=== PATIENT | female | born 1990 | race Caucasian/White ===

== ENCOUNTER 2017-08-12 17:39 | Inpatient (IN) ==
[2017-08-12 18:42] LABS: Basophils # 0.1 K/mcL (0.0-0.2); Basophils % 0.4 %; Eosinophils # 0.1 K/mcL (0.0-0.6); Eosinophils % 0.7 %; Hematocrit 40.8 % (35.3-44.9); Hemoglobin 13.5 g/dL (11.5-15.4); Immature Granulocytes % 0.3 % (0-4); Lymphocytes # 2.7 K/mcL (0.6-4.6); Lymphocytes % 22.9 %; Mean Corpuscular HGB Conc 33.1 g/dL (31.6-35.5); Mean Corpuscular Hemoglobin 27.6 pg (28.0-33.3); Mean Corpuscular Volume 83.4 fL (83.0-100.0); Mean Platelet Volume 10.2 fL (9.4-12.4); Monocytes # 0.8 K/mcL (0.0-1.3); Monocytes % 6.9 %; Neutrophils # 8.1 K/mcL (1.6-8.9); Platelet Count 306 K/mcL (140-400); Red Blood Count 4.89 M/mcL (3.82-4.97); Red Cell Distribution Width 13.3 % (11.5-14.5); Segmented Neutrophils % 68.8 %
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
[2017-08-12 18:46] LABS: Bilirubin,Urine Moderate (Negative); Blood,Urine Negative (Negative); Color,Urine Dark Yellow (Yellow); Glucose,Urine (UA) Normal (Normal); Ketones,Urine Trace mg/dL (Negative); Leukocyte Esterase,Urine Small (Negative); Nitrite,Urine Negative (Negative); Protein,Urine 30 mg/dL (Neg-Trace); Specific Gravity,Urine 1.026 (1.010-1.025); Urobilinogen,Urine Normal (Normal)
[2017-08-12 18:47] LABS: Clarity,Urine Hazy (Clear)
[2017-08-12 18:51] LABS: Bacteria,Urine Few per hpf (None-Few); RBC,Urine 0-3 per hpf (0-3); Squamous Epithelial Cell,Urine Few per lpf (None-Few)
[2017-08-12 18:56] LABS: Amphetamine Screen,Urine Positive ng/mL (Cutoff=1000); Barbiturate Screen,Urine Negative ng/mL (Cutoff=200); Benzodiazepines Screen,Urine Negative ng/mL (Cutoff=200); Cannabinoid Screen,Urine Negative ng/mL (Cutoff = 50); Cocaine Screen,Urine Negative ng/mL (Cutoff= 300); Opiate Screen,Urine Negative ng/mL (Cutoff=300); Phencyclidine Screen,Urine Negative ng/mL (Cutoff=25)
[2017-08-12 18:58] LABS: Acetaminophen < 10 mcg/mL (10-20); Ethanol < 10 mg/dL (Less than 10); Salicylate < 2.5 mg/dL (15.0-30.0)
[2017-08-12 19:11] LABS: BUN/Creatinine Ratio 10 (6-26); Blood Urea Nitrogen 11 mg/dL (6-20); Calcium 9.3 mg/dL (8.6-10.3); Carbon Dioxide 23 mEq/L (23-29); Chloride 103 mEq/L (98-107); Glucose 112 mg/dL (70-105); Osmolality,Calculated 286 (280-300); Potassium 3.5 mEq/L (3.5-5.1); Sodium 138 mEq/L (136-145); eGFR For African Americans > 60 (> 60); eGFR For Non-African Americans 58 (> 60)
[2017-08-12] MEDS ORDERED: MOM Conc 10 ML UD.LIQ PO PRN (21:56)
[2017-08-12] MEDS ORDERED: *HR* LORazepam 1 MG TABLET PO PRN (21:56)
[2017-08-12] MEDS ORDERED: *HR* LORazepam 2 MG/ML VIAL IM PRN (21:56)
[2017-08-12] MEDS ORDERED: Haloperidol Lactate 5 MG/ML VIAL IM PRN (21:56)
[2017-08-12] MEDS ORDERED: hydrOXYzine pamoate 25 MG CAPSULE PO PRN (21:56)
[2017-08-12] MEDS ORDERED: Mag Hydrox/Al Hydrox/Simeth 30 ML UDC PO PRN (21:56)
[2017-08-12] MEDS: traZODone 50 MG TABLET PO PRN (23:51)
[2017-08-13] MEDS ORDERED: Ziprasidone injection 20 MG/ML VIAL IM ONE (00:14)
[2017-08-13] MEDS: Acetaminophen 325 MG TABLET PO PRN (00:43)
--- NOTE | 2017-08-13 10:50 | Psychiatry History & Physical ---
Date of Encounter: 08/13/17 Time of Encounter: 10:42 History of Present Illness Patient Stated Chief Complaint: suicidal ideation Medicare Admission Attestation: For traditional Medicare patients the provided hospital inpatient services are reasonable and necessary and in the case of services not specified as inpatient -only under 42 CFR 419.22 (n), that they are appropriately provided as inpatient services in accordance 42 CFR 412.3. For Critical Access Hospital the patient may reasonably be expected to be discharged or transferred to a hospital within 96 hours after admission to the Critical Access Hospital. Admitted From: Home Plans for Post Hospital Care: Home History of Present Illness: Ms. Martin is a 26 year old female who was admitted secondary to SI and HI. Today she is very drowsy. Kept nodding off during interview. Slurring words. Difficult to understand. Had to terminate interview as client too sedated to participate meaningfully. Client did manage to say she is not currently linked with a psychiatrist and is not currently on any medications. Records from previous 1A admission in 2015 state that client was admitted for SI and HI at that time as well. She was linked with [facility] and discharged on Lexapro and prn Trazodone. Tox screen positive for amphetamines. Client admits today to doing ICE. Suspect a lot of her current presentation is substance related. Will not order any meds today and give her time to wake up. Will reevaluate when more alert and she can provide more information. Past Med Surg Social Fam HX - Past Medical History Medical history: asthma, kidney stones, migraine, seizures - Past Psychiatric History Psychiatric history: Reports: depression, previous psychiatric hospitalization Family psychiatric history: Unknown Family History of Suicide: Unknown - Past Surgical History Surgical History: no surgical history - Social History Smoking Status: Current every day smoker Smokeless Tobacco Status: No Alcohol use: none Drug use: opiates, prescription drug abuse - Family History Mother Living Status: Still Living Hx Family Cancer: Yes (uterine) Medications & Allergies Topiramate [Topamax] 100 mg PO BID 08/08/17 [History] Sulfamethoxazole/Trimeth DS [Bactrim DS] 1 each PO BID #14 tablet 08/12/17 [Rx] 3 Allergy/AdvReac Type Severity Reaction Status Date / Time coconut oil Allergy Hives Verified 08/12/17 17:47 Diclofenac [From Voltaren] Allergy Hives Verified 08/12/17 17:47 Penicillins [PCN] Allergy Hives Verified 08/12/17 17:47 tramadol [From Ultram] Allergy Hives Verified 08/12/17 17:47 Review of Systems Constitutional: Denies: fever, chills, weakness, weight change Eyes: Denies: eye pain, vision change Ears, Nose, Throat: Denies: ear pain, throat pain, dental pain, hearing loss, congestion Cardiovascular: Denies: chest pain, palpitations, dyspnea on exertion Respiratory: Denies: cough, dyspnea, wheezes Gastrointestinal: Denies: abdominal pain, nausea, vomiting, diarrhea, constipation Genitourinary female: Denies: urgency, dysuria, frequency, abnormal menses, dyspareunia Musculoskeletal: Denies: joint swelling, joint pain Integumentary: Denies: rash, lesions, pruritus Neurological: Denies: headache, weakness, numbness, memory loss Endocrine: Denies: fatigue, heat or cold intolerance Hematologic/Lymphatic: Denies: easy bruising, lymphadenopathy Allergic/Immunologic: Denies: urticaria, itchy eyes Exam - HEENT Head exam IM: Present: atraumatic Eye exam IM: Present: EOMI ENT exam IM: Present: normal exam - Neurological Neurological exam: Present: CN II-XII intact - Respiratory Respiratory exam IM: Present: CTAB - GI/Abdominal GI/Abdominal exam IM: Present: normal bowel sounds, soft. Absent: tenderness - Extremities Extremities exam IM: Present: full ROM - Skin Skin exam IM: Present: dry, warm - Constitutional Vitals: Temp Pulse Resp BP Pulse Ox 97.9 F 109 18 167/116 100 08/12/17 22:30 08/12/17 22:30 08/12/17 22:30 08/12/17 22:30 08/12/17 21:46 General appearance: obese - Musculoskeletal Gait: unsteady Station: relaxed Strength & Tone: normal for patient - Psychiatric Patient Orientation: Yes Person, Yes Time, Yes Place Level of alertness: Sedated Behavior: calm Psychomotor activity: Slowed Eye Contact: Minimal Contact Mood Description: Depressed Affect description: congruent with mood Speech Volume: Soft/Quiet Speech pattern: slurred Language & Vocabulary: consistent with education Thought Process: Linear Thought Content: Yes Suicidal ideation, Yes Homicidal ideation, No Overt delusions Perceptual Disturbances: No Auditory hallucinations, No Visual hallucinations Attention Span Ability: Unable to Focus, Unable to Sustain Attention Memory Description: Grossly Intact Patient Reliability: Questionable Historian Fund of knowledge: Yes abstraction ability, Yes average, Yes aware of current events Intelligence Estimate: Below Average Judgment: Limited Insight: Partial Results - Labs Labs: Laboratory Last Values WBC 11.7 K/mcL (4.3-11.1) H 08/12/17 18:20 RBC 4.89 M/mcL (3.82-4.97) 08/12/17 18:20 Hgb 13.5 g/dL (11.5-15.4) 08/12/17 18:20 Hct 40.8 % (35.3-44.9) 08/12/17 18:20 MCV 83.4 fL (83.0-100.0) 08/12/17 18:20 MCH 27.6 pg (28.0-33.3) L 08/12/17 18:20 MCHC 33.1 g/dL (31.6-35.5) 08/12/17 18:20 RDW 13.3 % (11.5-14.5) 08/12/17 18:20 Plt Count 306 K/mcL (140-400) 08/12/17 18:20 MPV 10.2 fL (9.4-12.4) 08/12/17 18:20 Immature Gran % 0.3 % (0-4) 08/12/17 18:20 Seg Neutrophils % 68.8 % 08/12/17 18:20 Lymphocytes % 22.9 % 08/12/17 18:20 Monocytes % 6.9 % 08/12/17 18:20 Eosinophils % 0.7 % 08/12/17 18:20 Basophils % 0.4 % 08/12/17 18:20 Neutrophils # 8.1 K/mcL (1.6-8.9) 08/12/17 18:20 Lymphocytes # 2.7 K/mcL (0.6-4.6) 08/12/17 18:20 Monocytes # 0.8 K/mcL (0.0-1.3) 08/12/17 18:20 Eosinophils # 0.1 K/mcL (0.0-0.6) 08/12/17 18:20 Basophils # 0.1 K/mcL (0.0-0.2) 08/12/17 18:20 Sodium 138 mEq/L (136-145) 08/12/17 18:20 Potassium 3.5 mEq/L (3.5-5.1) 08/12/17 18:20 Chloride 103 mEq/L (98-107) 08/12/17 18:20 Carbon Dioxide 23 mEq/L (23-29) 08/12/17 18:20 BUN 11 mg/dL (6-20) 08/12/17 18:20 Creatinine 1.13 mg/dL (0.60-1.20) 08/12/17 18:20 Est GFR ( Amer) > 60 (> 60) 08/12/17 18:20 Est GFR (Non-Af Amer) 58 (> 60) L 08/12/17 18:20 BUN/Creatinine Ratio 10 (6-26) 08/12/17 18:20 Glucose 112 mg/dL (70-105) H 08/12/17 18:20 Calculated Osmolality 286 (280-300) 08/12/17 18:20 Calcium 9.3 mg/dL (8.6-10.3) 08/12/17 18:20 Urine Color Dark Yellow (Yellow) 08/12/17 18:20 Urine Clarity Hazy (Clear) A 08/12/17 18:20 Urine pH 6.0 pH Units (5.0-8.0) 08/12/17 18:20 Ur Specific [place] 1.026 (1.010-1.025) H 08/12/17 18:20 Urine Protein 30 mg/dL (Neg-Trace) H 08/12/17 18:20 Urine Glucose (UA) Normal mg/dL (Normal) 08/12/17 18:20 Urine Ketones Trace mg/dL (Negative) H 08/12/17 18:20 Urine Blood Negative (Negative) 08/12/17 18:20 Urine Nitrite Negative (Negative) 08/12/17 18:20 Urine Bilirubin Moderate (Negative) H 08/12/17 18:20 Urine Urobilinogen Normal mg/dL (Normal) 08/12/17 18:20 Ur Leukocyte Esterase Small (Negative) H 08/12/17 18:20 Urine Microscopic RBC 0-3 per hpf (0-3) 08/12/17 18:20 Urine Microscopic WBC 3-5 per hpf (0-3) H 07/06/18 18:20 Ur Squamous Epith Cells Few per lpf (None-Few) 08/12/17 18:20 Urine Bacteria Few per hpf (None-Few) 08/12/17 18:20 Salicylates < 2.5 mg/dL (15.0-30.0) L 08/12/17 18:20 Urine Opiates Screen Negative ng/mL (Tbnbhz=359) 08/12/17 18:20 Acetaminophen < 10 mcg/mL (10-20) L 08/12/17 18:20 Ur Barbiturates Screen Negative ng/mL (Hmrfen=206) 08/12/17 18:20 Ur Phencyclidine Scrn Negative ng/mL (Cutoff=25) 08/12/17 18:20 Ur Amphetamines Screen Positive ng/mL (Wpsyqm=8095) H 08/12/17 18:20 U Benzodiazepines Scrn Negative ng/mL (Prizng=092) 08/12/17 18:20 Urine Cocaine Screen Negative ng/mL (Cutoff= 300) 08/12/17 18:20 U Marijuana (THC) Screen Negative ng/mL (Cutoff = 50) 08/12/17 18:20 Ur Drug Screen Interp See Below 08/12/17 18:20 Ethyl Alcohol < 10 mg/dL (Less than 10) 08/12/17 18:20 Assessment and Plan (1) Drug-induced mood disorder Current visit: Yes Status: Acute Plan: Admit inpatient for safety and stabilization, Close observation, Suicide Precautions per unit protocol, Encourage participation in unit milieu, Group Therapy, Monitor sleep, Monitor appetite Risks, benefits, side effects, alternatives discussed w/pt: Yes Patient agreeable to treatment: Yes Plans for Post Hospital Care: Home Estimated Length of Stay (Days): 4 (2) Stimulant abuse Current visit: Yes Status: Acute Plan: Admit inpatient for safety and stabilization, Close observation, Suicide Precautions per unit protocol, Encourage participation in unit milieu, Group Therapy, Monitor sleep, Monitor appetite Risks, benefits, side effects, alternatives discussed w/pt: Yes Patient agreeable to treatment: Yes Plans for Post Hospital Care: Home Estimated Length of Stay (Days): 4
[2017-08-13] MEDS: Topiramate 100 MG TABLET PO SCH ×2 (11:59→21:22)
[2017-08-14] MEDS: Topiramate 100 MG TABLET PO SCH ×2 (08:41→21:09)
--- NOTE | 2017-08-14 11:38 | Psychiatry Progress Note ---
Date of Encounter: 08/14/17 Time of Encounter: 11:31 Subjective Interval history: Client is still drowsy but more able to communicate today. According to staff she slept all day and all night yesterday. Client is unclear on the events that transpired leading up to her admission. Believes she took a bunch of muscle relaxers in a suicide attempt but she is not 100% sure that this actually happened. Claims she and her have been fighting. Endorses worsening depression. 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 Client denies SI today but she is emotionally labile. Very dramatic. Borderline traits. Thoughts are circular and she repeats herself a lot. Currently prescribed Topamax for headaches and seizures. Vague about whether she will take mental health medications. Discussed Abilify and she seemed agreeable. Only thing she asked for was Klonopin. Suspect her presentation is mostly related to substance abuse and personality issues. Client states she wants to spend her time here writing poetry and coloring. Review of Systems Constitutional: Denies: fever, chills, weakness, weight change Eyes: Denies: eye pain, vision change Ears, Nose, Throat: Denies: ear pain, throat pain, dental pain, hearing loss, congestion Cardiovascular: Denies: chest pain, palpitations, dyspnea on exertion Respiratory: Denies: cough, dyspnea, wheezes Gastrointestinal: Denies: abdominal pain, nausea, vomiting, diarrhea, constipation Musculoskeletal: Denies: joint swelling, joint pain Neurological: Denies: headache, weakness, numbness, memory loss Results - Vital Signs Vital Signs: Temp Pulse Resp BP Pulse Ox 97.9 F 98 18 111/79 100 08/14/17 09:00 08/14/17 09:00 08/14/17 09:00 08/14/17 09:00 08/12/17 21:46 Assessment and Plan (1) Drug-induced mood disorder Current visit: Yes Status: Acute Plan: Continue hospitalization, Close observation, Suicide Precautions per unit protocol, Encourage participation in unit milieu, Group Therapy, Monitor sleep, Monitor appetite Risks, benefits, side effects, alternatives discussed w/pt: Yes Patient agreeable to treatment: Yes (2) Stimulant abuse Current visit: Yes Status: Acute Plan: Continue hospitalization, Close observation, Suicide Precautions per unit protocol, Encourage participation in unit milieu, Group Therapy, Monitor sleep, Monitor appetite Risks, benefits, side effects, alternatives discussed w/pt: Yes Patient agreeable to treatment: Yes Consult Discharge Plan - Plan Referrals: NONE,PCP [Primary Care Provider] - Psychiatry Exam - Constitutional Vitals: Temp Pulse Resp BP Pulse Ox 97.9 F 98 18 111/79 100 08/14/17 09:00 08/14/17 09:00 08/14/17 09:00 08/14/17 09:00 08/12/17 21:46 General appearance: obese - Musculoskeletal Gait: normal Station: relaxed Strength & Tone: normal for patient - Psychiatric Patient Orientation: Yes Person, Yes Time, Yes Place Level of alertness: Alert Behavior: calm, cooperative Psychomotor activity: Normal Eye Contact: Maintains Eye Contact Mood Description: Depressed Affect description: congruent with mood Speech Volume: Normal Speech pattern: normal rate, normal rhythm, normal tone, fluent, spontaneous Language & Vocabulary: consistent with education Thought Process: Circumstantial Thought Content: No Suicidal ideation, No Homicidal ideation, No Overt delusions Perceptual Disturbances: No Auditory hallucinations, No Visual hallucinations Attention Span Ability: Capable of Focused Attention Memory Description: Recent Impaired Patient Reliability: Questionable Historian Fund of knowledge: Yes below average Intelligence Estimate: Below Average Judgment: Limited Insight: Partial
[2017-08-14] MEDS ORDERED: risperiDONE 0.25 MG TABLET PO SCH (21:00)
[2017-08-14] MEDS ORDERED: ARIPiprazole 5 MG TABLET PO SCH (21:00)
[2017-08-14] MEDS: traZODone 50 MG TABLET PO PRN (21:09)
[2017-08-15] MEDS: Acetaminophen 325 MG TABLET PO PRN (09:09)
[2017-08-15] MEDS: Topiramate 100 MG TABLET PO SCH (09:09)
[2017-08-15 09:15] VITALS: BP 107/67
[2017-08-15] MEDS ORDERED: Ibuprofen 800 MG TABLET PO ONE (11:41)
--- NOTE | 2017-08-15 11:52 | Discharge Summary ---
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 Status: Acute (2) Other stimulant dependence with stimulant-induced mood disorder Status: Acute (3) Epilepsy without status epilepticus, not intractable Status: Chronic Qualifiers: Epilepsy type: unspecified Qualified Code(s): G40.909 - Epilepsy, unspecified, not intractable, without status epilepticus (4) Migraine without status migrainosus, not intractable Status: Acute Qualifiers: Migraine type: without aura Qualified Code(s): G43.009 - Migraine without aura, not intractable, without status migrainosus (5) Suicidal ideation Status: Resolved Medications - Discharge Medications Prescriptions: ARIPiprazole [Abilify] 5 mg PO HS 30 Days #30 tablet Sulfamethoxazole/Trimeth DS [Bactrim Ds] 1 each PO BID 7 Days #14 tablet Topiramate [Topamax] 100 mg PO BID 30 Days #60 tablet ARIPiprazole [Abilify] 5 mg PO HS 30 Days #30 tablet 08/15/17 [Rx] Sulfamethoxazole/Trimeth DS [Bactrim Ds] 1 each PO BID 7 Days #14 tablet [Rx] Topiramate [Topamax] 100 mg PO BID 30 Days #60 tablet 08/15/17 [Rx] 3 Allergy/AdvReac Type Severity Reaction Status Date / Time coconut oil Allergy Hives Verified 08/12/17 17:47 Diclofenac [From Voltaren] Allergy Hives Verified 08/12/17 17:47 Penicillins [PCN] Allergy Hives Verified 08/12/17 17:47 tramadol [From Ultram] Allergy Hives Verified 08/12/17 17:47 Provider Date of admission: 08/12/17 21:44 Primary care physician: PCP NONE Consults: 08/14/17 15:35 Consult to Pastoral Services [CONS] Routine Comment: Discharging clinician: Prudencio Kaur Psychiatry Exam - Constitutional Vitals: Temp Pulse Resp BP Pulse Ox 97.2 F L 90 18 107/67 100 08/15/17 09:00 08/15/17 09:00 08/15/17 09:00 08/15/17 09:00 08/12/17 21:46 General appearance: age & developmentally appropriate, well-groomed, well- nourished - Musculoskeletal Gait: normal Station: relaxed Strength & Tone: normal for patient - Psychiatric Patient Orientation: Yes Person, Yes Time, Yes Place Level of alertness: Sedated Behavior: calm, cooperative Eye Contact: Maintains Eye Contact Mood Description: Euthymic/stable Affect description: congruent with mood, full range Speech Volume: Normal Speech pattern: normal rate, normal rhythm, normal tone, fluent, spontaneous Language & Vocabulary: consistent with education Thought Process: Linear, Goal Oriented Thought Content: No Suicidal ideation, No Homicidal ideation, No Overt delusions Perceptual Disturbances: No Auditory hallucinations, No Visual hallucinations Attention Span Ability: Capable of Focused Attention Memory Description: Grossly Intact Patient Reliability: Reliable Historian Fund of knowledge: Yes abstraction ability, Yes aware of current events Intelligence Estimate: Average Judgment: Fair Insight: Partial (patient reported migraine at time of interview) Hospital Course Hospital course: Ms. Martin is a 26 year old female Chief complaints was of suicidal ideation. History of present illness. The patient had been admitted after reporting suicidal ideation sitting in her car with a rope around her neck. An effort to kill herself. After the patient was admitted to the [facility]. She did not display any suicidal or homicidal ideation. The patient was continued on Abilify and topiramate. Topiramate is used for seizures and for migraine headaches. The patient's use of methamphetamine was of concern area was felt that this contributed significantly to her mood and her paranoia. The difficulties between her and her may have induced some of the thinking. Nonetheless on the day of discharge the patient was seen and told that her would be interested in having her return home. The patient denied significant paranoia or ideas about him. She reported no suicidal ideation. The patient elected to return home with outpatient follow-up. The patient did not have evidence of significant mood disturbance or psychosis. However the patient did have migraine headache and I discussed treatment options including ibuprofen and Naprosyn she said that she could take these medicines. The chart shows an allergy to diclofenac but the patient denied allergies to the medicines offered. Regarding the patient's diagnosis and diagnosis of mood disorder due to a general medical condition major depressive type was given. The primary physiologic conditions are a seizure disorder which she has been under some treatment for an for migraine headaches works were witnessed on the unit. These can contribute significantly to the presentation of major depression including suicidal ideation. Furthermore patient's use of methamphetamine may be contributing significantly. The nature of the seizures could not be determined as some of the workup had occurred outside the health system. The patient did have a head CT and MRI in the past or read as normal. - Time Spent with Patient Total time spent providing and/or coordinating discharge services: Less than 30 minutes Assessment and Plan - Patient/Caregiver Discharge Instructions Activity: resume usual activities as tolerated Diet: regular diet - Follow up Plan Follow up with: Seng Rehman [Outside] - 08/18/17 2:00 pm (The above appointment is with Anastasia Ndiaye for mental health and substance abuse counseling.Please bring photo ID and proof of pending insurance.) [facility] Cheryl [Outside] - 08/25/17 11:00 am (The above appointment is with Sade Gray CNP a psychiatric provider.) Functional capacity at discharge: independent ambulation Overall status at discharge: Stable Disposition: Home, Self-Care Quality - Multiple Antipsychotics Patient discharged on 2 or more antipsychotic medications: No Procedures - Procedures Procedures: Medication Management, Crisis Stabilization, Supportive Therapy, Group Therapy, Psychoeducational Therapy
== END 2017-08-15 13:35 | disposition home or self-care (01) | DRG 884 ==
LOC: EMEROO 17:39 → 1ANU 21:44
PROVIDERS: ADMIT Psychiatry & Neurology Forensic Psychiatry; ATTEND Psychiatry & Neurology Forensic Psychiatry

== ENCOUNTER 2018-09-08 02:55 | Observation (INO) ==
[2018-09-08] MEDS ORDERED: *HR* LORazepam 2 MG/ML VIAL IVP ONE (03:12)
--- NOTE | 2018-09-08 03:27 | Emergency Department Note ---
Disposition Clinical Impression: Tachycardia, Elevated troponin Chest pain Qualifiers: Chest pain type: unspecified Qualified Code(s): R07.9 - Chest pain, unspecified Hypertension Qualifiers: Hypertension type: unspecified Qualified Code(s): I10 - Essential (primary) hypertension Disposition: Admitted As Inpatient Condition: Fair Time of Disposition: 06:29 Chest Pain HPI - General Chief Complaint: ED Chest Pain Stated Complaint: vomiting/CP Time Seen by Provider: 09/08/18 03:08 Source: patient, family Mode of arrival: ambulatory Limitations: no limitations Vital Signs Reviewed: Yes Nursing Notes Reviewed: Yes - History of Present Illness HPI Narrative: 27-year-old female past medical history of anxiety/depression, fibromyalgia, presenting for a 3 hour history of sudden onset headache, chest pain, nausea and vomiting. Upon my initial evaluation the patient is actively shaking, is awake, alert, oriented, either will not or cannot verbally respond to my questioning and instead is pointing to parts of her body when asked about pain and other review of systems questioning. Patient's boyfriend in the room with her answers questions for the patient and appears to be very actively involved in her health care. Boyfriend states the patient has been having multiple seizures since around midnight. It is noted that during the patient's shaking that she is able to respond to questioning there are no lateralizing signs, she appears to be in acute emotional distress, her skin is normal color she is nondiaphoretic, noncy anotic she is not pale. Pt complaint: chest pain Onset (ago): hour(s) Pain Location: substernal Severity scale (1-10): 10 Associated symptoms: Reports: nausea, vomiting, dyspnea Treatments prior to arrival chest pain: none - Related Data Home Medications Medication Instructions Recorded Confirmed hydrOXYzine HCl [Hydroxyzine HCl] 25 mg PO TID 11/16/17 04/02/18 Promethazine [Phenergan] 25 mg PO Q6HR PRN 04/02/18 04/02/18 Ketorolac [Toradol] 06/27/18 Metoprolol [Lopressor] 06/27/18 Previous Rx's Medication Instructions Recorded Topiramate [Topamax] 100 mg PO BID 30 Days #60 tablet 08/15/17 SUMAtriptan Succinate [Imitrex] 6 mg SQ Q1H PRN #4 cartridge 11/16/17 Albuterol Sulfate [Ventolin Hfa] 18 gm IH Q4H PRN #1 [id number] 02/21/18 Omeprazole 20 mg PO DAILY #30 tab.[email or web address]. 02/28/18 Clindamycin [Cleocin] 150 mg PO Q6HR #40 capsule 05/28/18 DiphenhydraMINE [Benadryl] 25 - 50 mg PO Q6HR #30 capsule 07/30/18 Famotidine [Pepcid] 20 mg PO BID #30 tablet 07/30/18 predniSONE [PredniSONE] 40 mg PO DAILY #10 tablet 07/30/18 Allergies Allergy/AdvReac Type Severity Reaction Status Date / Time Amoxicillin Allergy Hives Verified 06/27/18 02:00 coconut oil Allergy Hives Verified 04/02/18 05:11 Diclofenac [From Voltaren] Allergy Hives Verified 04/02/18 05:11 Penicillins [PCN] Allergy Hives Verified 04/02/18 05:11 tramadol [From Ultram] Allergy Hives Verified 04/02/18 05:11 Review of Systems: As Per HPI Limitations: ROS unobtainable due to patients medical condition Chest Pain PMH - Past Medical History Medical history: Reports: asthma, hypertension, kidney stones, migraine, seizures Surgical history: Reports: no surgical history Psychiatric history: Reports: anxiety, ADHD, bipolar, depression, panic disorder, PTSD, prior suicide attempt, schizophrenia, previous psychiatric hospitalization [employer] history: Reports: polycystic ovary syndrome - Social History Smoking Status: Never smoker Alcohol use: Reports: none Drug use: Reports: none Physical Exam Constitutional: Patient is actively shaking creating a somewhat limited physical exam Neuro: GCS 15, no overt focal neurological deficits Head: Atraumatic, normocephalic Eyes: Pupils equal, round and reactive to light, no scleral icterus, no conjunctival injection Neck: Trachea midline without deviation. Anterior neck is supple without swelling. *Chest: Symmetric chest wall rise *Heart: Cardiac rate is tachycardic, rhythm is regular with S1 and S2 , no S3 or S4 appreciated, no murmurs, gallops, rubs, or clicks. *Lungs: Lungs are clear to auscultation bilaterally, without accessory muscle use or prolonged expiratory phase. No wheezes, rhonchi or stridor appreciated. Abdomen: Abdomen is flat, soft to palpation, normal bowel sounds. No abdominal bruit auscultated. Non-distended, non-rigid, no organomegaly, no ascites appreciated. No pulsatile mass, no tenderness or guarding to palpation in all four quadrants, no rebound Extremities: Normal capillary refill without evidence of pedal edema, joint swelling or erythema. Pulses/motor intact in all 4 extremities. Psychiatric exam: Patient appears extremely anxious. Integumentary: warm, dry, intact, normal color. No rash, cyanosis, diaphoresis, erythema, or pallor - General Limitations: no limitations General appearance: alert, anxious Course Course Narrative: CBC, BMP, troponin, TSH, urinalysis, urine , EKG/old EKG, chest x-ray, 324 mg aspirin, nitroglycerin, 2 mg Ativan for management of patient's symptoms. - Reevaluation(s) Reevaluation #1: Upon reevaluation patient is now conversational without dyspnea she remains tachycardic and tachypneic as well as hypertensive, patient states that she has these episodes whenever her back plain flares up and that she normally has episodes of seizures along with the pain. Patient states that she is on Imitrex injections for migraine headaches and takes Topamax for seizures. Time: 04:21 Reevaluation #2: RE-evaluation patient states she is having worsening head and back pain is causing her to become more anxious and tremor again. As the patient has already received 2 mg of Ativan and will be receiving 10 mg metoprolol I will cautiously administer 50 g of fentanyl and reassessed frequently to be sure that the patient does not become hypotensive or develop any further complications. The patient verbalizes her understanding and agreement with this plan. Time: 04:31 Reevaluation #3: After 5 mg of Lopressor patient's heart rate down into the 110 range. We will administer second 5 mg aliquots at this time. Time: 04:35 Additional Reevaluation(s): 0 4:35 AM patient noted to have elevated troponin of 0.05. We will repeat this lab 3 hours after initial draw putting redraw time at 6:30 AM. Patient will be admitted to hospitalist medicine service if continued elevation at that time. No ischemic changes are noted to the EKG. 0 5:15 AM. Patient continues to be tachycardic, tachypneic, hypertensive despite 10 mg metoprolol. We will start a labetalol drip at this time and cont inue to frequently reassessed. 0 6:54 AM. Repeat troponin of 0.05 holding steady patient will not require heparinization at this time. Vital Signs Temperature 99.1 F 09/08/18 03:04 Pulse Rate 156 09/08/18 03:04 Respiratory Rate 28 09/08/18 03:04 Blood Pressure 152/119 09/08/18 03:04 O2 Sat by Pulse Oximetry 100 09/08/18 03:04 Temperature 99.1 F 09/08/18 03:04 Pulse Rate 129 09/08/18 06:06 Respiratory Rate 18 09/08/18 06:06 Blood Pressure 157/96 09/08/18 06:10 O2 Sat by Pulse Oximetry 99 09/08/18 06:06 Oxygen Delivery Oxygen Delivery Room Air Chest Pain - MDM Narrative Medical decision making narrative: Patient heart score is 2 Patient started on labetalol drip due to tachycardia, hypertension is currently well-controlled at 1 mg per hour heart rate is in the 110 range with a blood pressure in the 150s over 99. After 3 sublingual nitroglycerin tablets the patient states that she is chest pain-free, she has no other concerns or comp laints at this time. We are pending the results of repeat troponin for potential heparinization if elevated. The patient is currently hemodynamically stable and will be admitted to hospitalist medicine service for further evaluation and management of tachycardia, hypertension, and elevated troponin. Patient verbalizes understanding and agreement this plan. Repeat EKG shows no ischemic change. - Lab Data Lab results reviewed: Yes I reviewed the patient's lab results. Result diagrams: 09/08/18 03:34 09/08/18 03:34 Lab Results 09/08/18 09/08/18 09/08/18 Range/Units 03:34 03:34 06:30 WBC 13.5 H (4.3-11.1) K/mcL RBC 5.24 H (3.82-4.97) M/mcL Hgb 14.8 (11.5-15.4) g/dL Hct 44.9 (35.3-44.9) % MCV 85.7 (83.0-100.0) fL MCH 28.2 (28.0-33.3) pg MCHC 33.0 (31.6-35.5) g/dL RDW 12.9 (11.5-14.5) % Plt Count 315 (140-400) K/mcL MPV 11.4 (9.4-12.4) fL Immature Gran % 0.4 (0-4) % Seg Neutrophils % 86.7 % Lymphocytes % 8.5 % Monocytes % 4.0 % Eosinophils % 0.1 % Basophils % 0.3 % Neutrophils # 11.7 H (1.6-8.9) K/mcL Lymphocytes # 1.2 (0.6-4.6) K/mcL Monocytes # 0.5 (0.0-1.3) K/mcL Eosinophils # 0.0 (0.0-0.6) K/mcL Basophils # 0.0 (0.0-0.2) K/mcL Sodium 138 (136-145) mEq/L Potassium 3.9 (3.5-5.1) mEq/L Chloride 102 (98-107) mEq/L Carbon Dioxide 20 L (23-29) mEq/L BUN 9 (6-20) mg/dL Creatinine 0.98 (0.60-1.20) mg/dL Est GFR ( Amer) > 60 (> 60) Est GFR (Non-Af Amer) > 60 (> 60) BUN/Creatinine Ratio 9 (6-26) Glucose 125 H (70-105) mg/dL Calculated Osmolality 286 (280-300) Calcium 9.4 (8.6-10.3) mg/dL Troponin I 0.05 H* (< 0.04) ng/mL TSH 1.000 (0.340-5.600) mcIU/mL Urine Color Yellow (Yellow) Urine Clarity Clear (Clear) Urine pH 7.0 (5.0-8.0) pH Units Ur Specific [place] 1.013 (1.010-1.025) Urine Protein Negative (Neg-Trace) mg/dL Urine Glucose (UA) Normal (Normal) mg/dL Urine Ketones Negative (Negative) mg/dL Urine Blood Negative (Negative) Urine Nitrite Negative (Negative) Urine Bilirubin Negative (Negative) Urine Urobilinogen Normal (Normal) mg/dL Ur Leukocyte Esterase Negative (Negative) Ur Culture Indicated? NO (NO) Urine Test (Negative) Ur Drug Screen Interp 09/08/18 09/08/18 Range/Units 06:30 06:30 WBC (4.3-11.1) K/mcL RBC (3.82-4.97) M/mcL Hgb (11.5-15.4) g/dL Hct (35.3-44.9) % MCV (83.0-100.0) fL MCH (28.0-33.3) pg MCHC (31.6-35.5) g/dL RDW (11.5-14.5) % Plt Count (140-400) K/mcL MPV (9.4-12.4) fL Immature Gran % (0-4) % Seg Neutrophils % % Lymphocytes % % Monocytes % % Eosinophils % % Basophils % % Neutrophils # (1.6-8.9) K/mcL Lymphocytes # (0.6-4.6) K/mcL Monocytes # (0.0-1.3) K/mcL Eosinophils # (0.0-0.6) K/mcL Basophils # (0.0-0.2) K/mcL Sodium (136-145) mEq/L Potassium (3.5-5.1) mEq/L Chloride (98-107) mEq/L Carbon Dioxide (23-29) mEq/L BUN (6-20) mg/dL Creatinine (0.60-1.20) mg/dL Est GFR ( Amer) (> 60) Est GFR (Non-Af Amer) (> 60) BUN/Creatinine Ratio (6-26) Glucose (70-105) mg/dL Calculated Osmolality (280-300) Calcium (8.6-10.3) mg/dL Troponin I (< 0.04) ng/mL TSH (0.340-5.600) mcIU/mL Urine Color (Yellow) Urine Clarity (Clear) Urine pH (5.0-8.0) pH Units Ur Specific [place] (1.010-1.025) Urine Protein (Neg-Trace) mg/dL Urine Glucose (UA) (Normal) mg/dL Urine Ketones (Negative) mg/dL Urine Blood (Negative) Urine Nitrite (Negative) Urine Bilirubin (Negative) Urine Urobilinogen (Normal) mg/dL Ur Leukocyte Esterase (Negative) Ur Culture Indicated? (NO) Urine Test Negative (Negative) Ur Drug Screen Interp See Below - Radiology Data Radiology results reviewed: Yes I reviewed the patient's radiology results. Chest X-Ray 09/08/18 03:12 IMPRESSION: No acute process. D/ / Preet Mayorga / Preet Mayorga Interpreting Provider: Preet Mayorga - EKG Data EKG attestation: Yes I reviewed and interpreted this EKG. EKG results narrative: The patients EKG shows a sinus tachycardia rhythm at a rate of 147 beats per minute, AR interval of 122 milliseconds, a QRS duration of 70 milliseconds, a QT/QTc interval of 280 / 438 milliseconds respectively. There are no significant ST segment elevations, depressions, pathologic Q waves, abnormal T- wave inversions, nor any other signs of acute ischemic change. This EKG that was performed today is generally consistent in morphology with prior EKG that was performed on 06/27/2018 Patient's repeat EKG shows sinus tach with a heart of 119 bpm, there are no acute ischemic changes and this EKG is generally consistent morphology with prior EKG performed this evening. Heart Score - Score History: Slightly Suspicious EKG: Normal Age: Less than 45 Risk Factors: 1-2 risk factors Troponin: 1-3x normal limit HEART Score Total: 2
[2018-09-08] MEDS ORDERED: Ondansetron 4 MG/2 ML VIAL IVP STA (03:43)
[2018-09-08] MEDS ORDERED: 0.9 % Sodium Chloride 1,000 ML IVC ONE (03:55)
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
[2018-09-08] MEDS ORDERED: *HR* Metoprolol 5 MG/5 ML VIAL IVP ONE (04:04)
[2018-09-08] MEDS ORDERED: *HR* FentaNYL (PF) 100 MCG/2 ML VIAL IVP ONE ×2 (04:19→06:38)
[2018-09-08 04:33] LABS: Troponin I 0.05 ng/mL (< 0.04)
[2018-09-08] MEDS ORDERED: LABETALOL IVC SCH (05:15)
[2018-09-08] MEDS ORDERED: D5 IVC SCH (05:15)
[2018-09-08] MEDS ORDERED: WATER IVC SCH (05:15)
[2018-09-08] MEDS ORDERED: Aspirin 81 MG TAB.CHEW PO ONE (05:39)
[2018-09-08 05:44] LABS: Basophils % 0.3 %; Eosinophils % 0.1 %; Hematocrit 44.9 % (35.3-44.9); Hemoglobin 14.8 g/dL (11.5-15.4); Immature Granulocytes % 0.4 % (0-4); Lymphocytes # 1.2 K/mcL (0.6-4.6); Lymphocytes % 8.5 %; Mean Corpuscular Hemoglobin 28.2 pg (28.0-33.3); Mean Corpuscular Volume 85.7 fL (83.0-100.0); Mean Platelet Volume 11.4 fL (9.4-12.4); Monocytes # 0.5 K/mcL (0.0-1.3); Neutrophils # 11.7 K/mcL (1.6-8.9); Platelet Count 315 K/mcL (140-400); Red Blood Count 5.24 M/mcL (3.82-4.97); Red Cell Distribution Width 12.9 % (11.5-14.5); Segmented Neutrophils % 86.7 %; White Blood Count 13.5 K/mcL (4.3-11.1)
[2018-09-08] MEDS: Nitroglycerin 0.4 MG TAB.SUBL SL PRN ×3 (05:52→06:14)
[2018-09-08 05:53] LABS: BUN/Creatinine Ratio 9 (6-26); Blood Urea Nitrogen 9 mg/dL (6-20); Calcium 9.4 mg/dL (8.6-10.3); Carbon Dioxide 20 mEq/L (23-29); Chloride 102 mEq/L (98-107); Glucose 125 mg/dL (70-105); Osmolality,Calculated 286 (280-300); Potassium 3.9 mEq/L (3.5-5.1); Sodium 138 mEq/L (136-145); eGFR For African Americans > 60 (> 60); eGFR For Non-African Americans > 60 (> 60)
[2018-09-08 06:46] LABS: Bilirubin,Urine Negative (Negative); Blood,Urine Negative (Negative); Clarity,Urine Clear (Clear); Color,Urine Yellow (Yellow); Glucose,Urine (UA) Normal (Normal); Ketones,Urine Negative (Negative); Leukocyte Esterase,Urine Negative (Negative); Nitrite,Urine Negative (Negative); Protein,Urine Negative (Neg-Trace); Specific Gravity,Urine 1.013 (1.010-1.025); Urobilinogen,Urine Normal (Normal)
[2018-09-08 06:48] LABS: Barbiturate Screen,Urine Negative ng/mL (Cutoff=200)
[2018-09-08 06:49] LABS: Phencyclidine Screen,Urine Negative ng/mL (Cutoff=25)
[2018-09-08 06:55] LABS: Amphetamine Screen,Urine Negative ng/mL (Cutoff=1000); Benzodiazepines Screen,Urine Negative ng/mL (Cutoff=300); Cannabinoid Screen,Urine Negative ng/mL (Cutoff = 50); Cocaine Screen,Urine Negative ng/mL (Cutoff= 300); Opiate Screen,Urine Positive ng/mL (Cutoff=300)
[2018-09-08] MEDS ORDERED: Aspirin 81 MG TAB.CHEW PO SCH (09:00)
--- NOTE | 2018-09-08 09:20 | Internal Med History&Physical ---
Date of Encounter: 09/08/18 Time of Encounter: 09:53 Internal Medicine - H&P: HPI History of present illness: Ms. Martin is a 27 year old female Past Med Surg Social Fam HX - Past Medical History Medical history: asthma, hypertension, kidney stones, migraine, seizures Additional medical history: OPIATE ABUSE. ANXIETY. POLYCYSTIC OVARIAN DISEASE Psychiatric history: anxiety, ADHD, bipolar, depression, panic disorder, PTSD, prior suicide attempt, schizophrenia, previous psychiatric hospitalization - Past Surgical History Surgical History: no surgical history Additional surgical history: kidney stent. C Section - Social History Smoking Status: Never smoker Smokeless Tobacco Status: No Alcohol use: none Drug use: none - Family History Mother Adopted: No Family Member Ethnicity: Non- Living Status: Still Living Hx Family Cardiac Disorders: No Hx Family Respiratory Disorders: Yes (COPD) Hx Family Cancer: Yes (breast) Hx Family GI Disorders: No Hx Family Endocrine Disorder: No Hx Family Neuromuscular Disorders: No Hx Family Neurologic Disorders: No Hx Family HEENT Disorders: No Hx Family Autoimmune Disorders: No Internal Medicine - H&P: Meds Topiramate [Topamax] 100 mg PO BID 30 Days #60 tablet 08/15/17 [Rx] SUMAtriptan Succinate [Imitrex] 6 mg SQ Q1H PRN #4 cartridge 11/16/17 [Rx] Metoprolol Succinate [Toprol Xl] 25 mg PO DAILY 09/08/18 [History] Tizanidine HCl [Zanaflex] 2 mg PO BID PRN 09/08/18 [History] Allergy/AdvReac Type Severity Reaction Status Date / Time Amoxicillin Allergy Hives Verified 06/27/18 02:00 coconut oil Allergy Hives Verified 04/02/18 05:11 Diclofenac [From Voltaren] Allergy Hives Verified 04/02/18 05:11 Penicillins [PCN] Allergy Hives Verified 04/02/18 05:11 tramadol [From Ultram] Allergy Hives Verified 04/02/18 05:11 All Systems PM: A 10-system review of systems was performed and is negative for pertinent findings except as documented above in the HPI. - Constitutional Vitals: Temp Pulse Resp BP Pulse Ox 98.8 F 104 17 145/98 98 09/08/18 08:26 09/08/18 08:26 09/08/18 08:26 09/08/18 08:26 09/08/18 08:26 General appearance: Present: A&O X 3, morbidly obese Exam: . - Head Head exam: Present: atraumatic, normocephalic - Eye Eye exam: Present: PERRL, conjuntiva pink, sclera anicteric Pupils: Present: PERRL - Neck Neck exam general surgery: Present: supple, trachea midline. Absent: lymphadenopathy - Respiratory Respiratory exam: Present: CTAB. Absent: accessory muscle use, rales, rhonchi, wheezes - Cardiovascular Cardiovascular exam: Present: RRR, +S1, +S2. Absent: diastolic murmur, gallop, rubs, systolic murmur - GI/Abdominal GI/Abdominal exam: Present: normal bowel sounds, soft, no peritoneal signs. Absent: distended, tenderness - Extremities Exam Extremities exam: Present: warm, radial pulses palpable and symmetrical. Absent: calf tenderness, cyanotic, pedal edema - Neurological Exam Neurological exam: Present: CN II-XII intact, oriented X3, no focal deficits. Absent: pronater drift, facial droop, speech deficit - Skin Skin exam: Present: dry, intact Internal Med - H&P Results - Labs CBC & Chem 7: 09/08/18 03:34 09/08/18 03:34 Labs: Short CBC 09/08/18 Range/Units 03:34 WBC 13.5 H (4.3-11.1) K/mcL Hgb 14.8 (11.5-15.4) g/dL Hct 44.9 (35.3-44.9) % Plt Count 315 (140-400) K/mcL Neutrophils # 11.7 H (1.6-8.9) K/mcL BMP 09/08/18 03:34 Sodium 138 Potassium 3.9 Chloride 102 Carbon Dioxide 20 L BUN 9 Creatinine 0.98 Glucose 125 H Calcium 9.4 Cardiac Enzymes 09/08/18 09/08/18 Range/Units 03:34 06:23 Troponin I 0.05 H* 0.05 H* (< 0.04) ng/mL Urine 09/08/18 Range/Units 06:30 Urine Color Yellow (Yellow) Urine Clarity Clear (Clear) Urine pH 7.0 (5.0-8.0) pH Units Ur Specific [place] 1.013 (1.010-1.025) Urine Protein Negative (Neg-Trace) mg/dL Urine Glucose (UA) Normal (Normal) mg/dL - Impressions ITS Impressions Chest X-Ray 09/08/18 03:12 IMPRESSION: No acute process. D/ / Preet Mayorga / Preet Mayorga Interpreting Provider: Preet Mayorga - Assessment and Plan (1) Chest pain Current Visit: Yes Status: Acute Assessment and plan: Likely from hyperension. Troponin on admission was 0.05 and repeated was 0.05 a gain. She had chest pain that was relieved with nitro. - Obtain echocardiogram - cycle cardiac enzyme. - If chest pain or troponin do not improve, she may need cardiac stress test. Qualifiers: Chest pain type: unspecified Qualified Code(s): R07.9 - Chest pain, unspecified (2) Hypertensive emergency Current Visit: Yes Status: Acute Assessment and plan: Likely induced from acute and chronic back pain with sciatica. Patient was given pain medication and placed on labetolol drip and now BP is better controlled. DC Labetolol drip, start IV Labetolol Q2H prn. Resume home metoprolol (3) Elevated troponin Current Visit: Yes Status: Acute Assessment and plan: Likely from hyperension. Troponin on admission was 0.05 and repeated was 0.05 again. She had chest pain that was relieved with nitro. - Obtain echocardiogram - cycle cardiac enzyme. - If chest pain or troponin do not improve, she may need cardiac stress test. (4) Hypertension Current Visit: Yes Status: Acute Assessment and plan: Plan as above. Qualifiers: Hypertension type: essential hypertension Qualified Code(s): I10 - [place] l (primary) hypertension (5) Tachycardia Current Visit: Yes Status: Acute Assessment and plan: Likely due to pain and anxiety, currently on labetolol drip. On metoprolol XL at home, missed dose this morning due to being in hospital. Will resume and continue IV Labetolol as needed. (6) Migraine without status migrainosus, not intractable Current Visit: No Status: Acute Assessment and plan: Will try Benadryl with compazine. She states she has relief from migraines with Toradol, but with her significant hypertension, will need to avoid. 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 Urine drug screen negative for amphetamines, positive for opiates, unsure if the drug screen was obtained after Fentanyl was given in ED. (9) Anxiety Current Visit: No Status: Chronic Assessment and plan: Seen by Psychiatry for management. (10) Epilepsy without status epilepticus, not intractable Current Visit: No Status: Chronic Assessment and plan: Resume home medications, Topamax Qualifiers: Epilepsy type: unspecified Qualified Code(s): G40.909 - Epilepsy, unspecified, not intractable, without status epilepticus (11) Acute lumbar back pain Current Visit: Yes Status: Acute Assessment and plan: Patient states this is a known medical condition for her. She is seen and managed by her primary care physician for this. She has normal sensation and strength of lower extremities. Zanaflex at home does not appear to work very. Can try Flexeril as needed. Qualifiers: Back pain laterality: midline Sciatica presence: with sciatica Sciatica laterality: bilateral sciatica Qualified Code(s): M54.42 - Lumbago with sciatica, left side; M54.41 - Lumbago with sciatica, right side - Time Spent With Patient Total time spent is greater than 50% in coordination of care (as documented) at patient's floor/unit and/or counseling patient:
[2018-09-08] MEDS ORDERED: tiZANidine 4 MG TABLET PO PRN ×2 (09:22→18:00)
[2018-09-08] MEDS ORDERED: Ondansetron 4 MG/2 ML VIAL IVP PRN (09:29)
[2018-09-08] MEDS ORDERED: *HR* HYDROcodone/Acet 5/325 mg TABLET PO PRN (09:30)
[2018-09-08] MEDS ORDERED: Acetaminophen 325 MG TABLET PO PRN (09:30)
[2018-09-08] MEDS ORDERED: Naloxone 0.4 MG/ML INJ IVP PRN (09:30)
[2018-09-08] MEDS ORDERED: *HR* Labetalol 20 MG/4 ML SYRINGE IVP PRN (09:53)
[2018-09-08] MEDS ORDERED: Prochlorperazine 10 MG/2 ML VIAL IVP ONE (10:01)
[2018-09-08] MEDS: Metoprolol XL (24 HR) Succ 25 MG TAB.ER.24H PO SCH (10:19)
[2018-09-08] MEDS: *HR* HYDROcodone/Acet 5/325 mg TABLET PO PRN ×2 (13:27→21:11)
[2018-09-08] MEDS: Topiramate 100 MG TABLET PO SCH (21:11)
[2018-09-09] MEDS: *HR* HYDROcodone/Acet 5/325 mg TABLET PO PRN (08:26)
[2018-09-09] MEDS: Topiramate 100 MG TABLET PO SCH (08:26)
[2018-09-09] MEDS: Metoprolol XL (24 HR) Succ 25 MG TAB.ER.24H PO SCH (08:26)
[2018-09-09 09:42] VITALS: BP 137/93
--- NOTE | 2018-09-09 11:11 | Discharge Summary ---
- NOTES TO OUTPATIENT PROVIDER Notes to Outpatient Provider: Patient presented to the ER with chest pain and hypertensive urgency. Her troponins were slightly elevated at 0.05 initially most likely due to hypertensive urgency. The parents were monitored. They do not rise any further. Patient underwent 2-D echocardiogram which showed normal ejection fraction and normal wall motion abnormalities. Her chest pain appears to be intercostal in nature as she has reproducible chest wall tenderness. As such recommend NSAIDs to help treat her pain. Patient is allergic to diclofenac. As such she will be discharged on acetaminophen. Patient also complained of long-standing low back pain with exacerbation. She has been placed on gabapentin and in addition to her tizanidine to help control her symptoms. She needs close follow-up with her primary care provider after discharge. For her hypertension, she we will continue to take metoprolol as prescribed. 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 Priority: Secondary Status: Acute (4) Other stimulant dependence with stimulant-induced mood disorder Priority: Secondary Status: Acute (5) Epilepsy without status epilepticus, not intractable Priority: Secondary Status: Chronic Qualifiers: Epilepsy type: unspecified Qualified Code(s): G40.909 - Epilepsy, unspecified, not intractable, without status epilepticus (6) Migraine without status migrainosus, not intractable Priority: Secondary Status: Acute Qualifiers: Migraine type: without aura Qualified Code(s): G43.009 - Migraine without aura, not intractable, without status migrainosus (7) Hypertension Priority: Secondary Status: Chronic Qualifiers: Hypertension type: essential hypertension Qualified Code(s): I10 - Essential (primary) hypertension (8) Tachycardia Priority: Secondary Status: Resolved (9) Elevated troponin Priority: Secondary Status: Acute (10) Hypertensive emergency Priority: Secondary Status: Resolved (11) Acute lumbar back pain Priority: Secondary Status: Chronic Qualifiers: Back pain laterality: midline Sciatica presence: with sciatica Sciatica laterality: bilateral sciatica Qualified Code(s): M54.42 - Lumbago with sciatica, left side; M54.41 - Lumbago with sciatica, right side Hospital course: Ms. Martin is a 27 year old female Patient presented to the ER with chest pain and hypertensive urgency. Her troponins were slightly elevated at 0.05 initially most likely due to hypertensive urgency. The parents were monitored. They do not rise any further. Patient underwent 2-D echocardiogram which showed normal ejection fraction and normal wall motion abnormalities. Her chest pain appears to be intercostal in nature as she has reproducible chest wall tenderness. As such recommend NSAIDs to help treat her pain. Patient is allergic to diclofenac. As such she will be discharged on acetaminophen. Patient also complained of long-standing low back pain with exacerbation. She has been placed on gabapentin and in addition to her tizanidine to help control her symptoms. She needs close follow-up with her primary care provider after discharge. For her hypertension, she we will continue to take metoprolol as prescribed. Discharge discussed with: patient, family, nurse - Time Spent with Patient Total time spent providing and/or coordinating discharge services: Time spent: Less than 30 minutes (25 min) - Discharge Medications Prescriptions: New Gabapentin [Neurontin] 100 mg PO TID #60 capsule Acetaminophen [Pain Relief 8Hr] 650 mg PO Q6H #30 tablet.er Continued Topiramate [Topamax] 100 mg PO BID 30 Days #60 tablet Fexofenadine HCl [Allergy Relief] 180 mg PO DAILY PRN PRN Reason: Allergy Symptoms Metoprolol XL (24 HR) Succ [Toprol Xl] 25 mg PO DAILY #30 tab.er.24h SUMAtriptan Succinate [Imitrex] 6 mg SQ Q1H PRN #4 cartridge PRN Reason: Headache Changed Tizanidine HCl [Zanaflex] 2 mg PO BID #20 capsule Home Medications: Topiramate [Topamax] 100 mg PO BID 30 Days #60 tablet 08/15/17 [Rx] SUMAtriptan Succinate [Imitrex] 6 mg SQ Q1H PRN #4 cartridge 11/16/17 [Rx] Fexofenadine HCl [Allergy Relief] 180 mg PO DAILY PRN 09/08/18 [History] Acetaminophen [Pain Relief 8Hr] 650 mg PO Q6H #30 tablet.er 09/09/18 [Rx] Gabapentin [Neurontin] 100 mg PO TID #60 capsule 09/09/18 [Rx] Metoprolol XL (24 HR) Succ [Toprol Xl] 25 mg PO DAILY #30 tab.er.24h 09/09/18 [Rx] Tizanidine HCl [Zanaflex] 2 mg PO BID #20 capsule 09/09/18 [Rx] Allergies/Adverse Reactions: Allergy/AdvReac Type Severity Reaction Status Date / Time Amoxicillin Allergy Hives,Itching, Verified 09/08/18 19:28 Difficulty Breathing coconut oil Allergy Hives Verified 09/08/18 19:28 Diclofenac [From Voltaren] Allergy Hives, Itch Verified 09/08/18 19:28 Penicillins [PCN] Allergy Hives,Itching,Difficulty Verified 09/08/18 19:28 Breathing tramadol [From Ultram] Allergy Hives, Verified 09/08/18 19:28 Itching Date of admission: 09/08/18 06:36 Primary care physician: PCP NONE Discharging clinician: Najma Edmondson Anticipated date of discharge: 09/09/18 - Constitutional Vitals: Temp Pulse Resp BP Pulse Ox 97.8 F 91 13 137/93 96 09/09/18 08:00 09/09/18 08:00 09/09/18 08:00 09/09/18 08:00 09/09/18 08:30 General appearance: Present: A&O X 3, morbidly obese Exam: General: Patient is alert, no acute distress, oriented x 3, obese Respiratory: Good respiratory effort. Normal breath sounds. No wheezing or crackles. Cardiovascular: Reproducible chest wall tenderness on the left side. Regular rate and rhythm. s1 and s2 normal No clicks, rubs, gallops, or murmurs. No p edal edema Abdomen: Abdomen is soft, nontender. Bowel sounds are present Musculoskeletal: Spontaneously moving all extremities Skin: warm, dry, intact. Neuro: Alert oriented x 3 normal cranial nerves, no focal deficits - Patient Status Disposition: Home, Self-Care Condition: Good Functional capacity at discharge: independent ambulation Overall status at discharge: patient is progressing back to baseline - Discharge Instructions Instructions: Chest Pain (DC), Chronic Hypertension (DC) Follow Up With: NONE,PCP [Primary Care Provider] - (In 1 week) - Diet and Activity Activity: increase activity as tolerated Diet: low fat, low cholesterol, low salt diet
--- NOTE | 2018-09-11 13:07 | Electrocardiograph Report ---
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
--- NOTE | 2018-09-11 13:24 | Electrocardiograph Report ---
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
--- NOTE | 2018-09-12 06:22 | Electrocardiograph Report ---
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
== END 2018-09-09 12:23 | disposition home or self-care (01) ==
LOC: EMEROOARM 02:55 → 2ANU 02:55
PROVIDERS: ADMIT Internal Medicine; ATTEND Internal Medicine

== ENCOUNTER 2018-09-21 21:37 | Observation (INO) ==
[2018-09-22 01:41] LABS: Amphetamine Screen,Urine Negative ng/mL (Cutoff=1000); Barbiturate Screen,Urine Negative ng/mL (Cutoff=200); Benzodiazepines Screen,Urine Negative ng/mL (Cutoff=200); Cannabinoid Screen,Urine Negative ng/mL (Cutoff = 50); Cocaine Screen,Urine Negative ng/mL (Cutoff= 300); Opiate Screen,Urine Negative ng/mL (Cutoff=300); Phencyclidine Screen,Urine Negative ng/mL (Cutoff=25)
[2018-09-22] MEDS ORDERED: Ondansetron 4 MG/2 ML VIAL IVP PRN (02:02)
[2018-09-22] MEDS ORDERED: Naloxone 0.4 MG/ML INJ IVP PRN (02:02)
[2018-09-22 02:03] LABS: Basophils % 0.5 %; Eosinophils % 0.4 %; Hematocrit 46.8 % (35.3-44.9); Hemoglobin 14.8 g/dL (11.5-15.4); Immature Granulocytes % 0.1 % (0-4); Lymphocytes # 2.6 K/mcL (0.6-4.6); Lymphocytes % 33.7 %; Mean Corpuscular HGB Conc 31.6 g/dL (31.6-35.5); Mean Corpuscular Hemoglobin 28.4 pg (28.0-33.3); Mean Corpuscular Volume 89.7 fL (83.0-100.0); Mean Platelet Volume 10.6 fL (9.4-12.4); Monocytes # 0.5 K/mcL (0.0-1.3); Monocytes % 5.9 %; Neutrophils # 4.5 K/mcL (1.6-8.9); Red Blood Count 5.22 M/mcL (3.82-4.97); Red Cell Distribution Width 14.1 % (11.5-14.5); Segmented Neutrophils % 59.4 %; White Blood Count 7.6 K/mcL (4.3-11.1)
[2018-09-22] MEDS ORDERED: SUMAtriptan succinate 25 MG TABLET PO PRN (02:12)
[2018-09-22 02:24] LABS: Alanine Aminotransferase 83 Units/L (7-52); Albumin 4.7 g/dL (3.5-5.7); Albumin/Globulin Ratio 1.2 (1.1-2.2); Alkaline Phosphatase 87 Units/L (34-104); Aspartate Amino Transferase 56 Units/L (13-39); BUN/Creatinine Ratio 15 (6-26); Bilirubin,Total 0.6 mg/dL (0.3-1.0); Blood Urea Nitrogen 11 mg/dL (6-20); Calcium 9.2 mg/dL (8.6-10.3); Carbon Dioxide 19 mEq/L (23-29); Chloride 105 mEq/L (98-107); Globulin 3.9 g/dL (2.4-3.5); Glucose 89 mg/dL (70-105); Osmolality,Calculated 281 (280-300); Sodium 136 mEq/L (136-145); Total Protein 8.6 g/dL (6.4-8.9); eGFR For African Americans > 60 (> 60); eGFR For Non-African Americans > 60 (> 60)
[2018-09-22 02:25] LABS: Troponin I < 0.03 ng/mL (< 0.04)
[2018-09-22 02:34] LABS: Bilirubin,Direct 0.1 mg/dL (0.0-0.2); Bilirubin,Indirect 0.5 mg/dL (0.0-1.2)
[2018-09-22 02:48] LABS: Platelet Count 279 K/mcL (140-400)
[2018-09-22 02:50] LABS: Thyroid Stimulating Hormone 2.953 mcIU/mL (0.340-5.600)
[2018-09-22 03:33] LABS: Chol/HDL Ratio 5.9 (0-4.9); Magnesium 1.9 mg/dL (1.6-2.6)
[2018-09-22] MEDS: Nitroglycerin 0.4 MG TAB.SUBL SL PRN ×3 (03:46→03:58)
[2018-09-22] MEDS: *HR* Heparin 5,000 UNIT/ML VIAL SQ SCH ×3 (05:11→20:43)
[2018-09-22] MEDS: tiZANidine 4 MG TABLET PO SCH ×2 (08:04→20:43)
[2018-09-22] MEDS: Metoprolol XL (24 HR) Succ 25 MG TAB.ER.24H PO SCH (08:04)
[2018-09-22] MEDS ORDERED: Loratadine 10 MG TABLET PO PRN (09:00)
[2018-09-22] MEDS ORDERED: Topiramate 100 MG TABLET PO SCH ×2 (09:00→21:00)
[2018-09-22] MEDS ORDERED: Regadenoson 0.4 MG/5 ML SYRINGE IVP ONE (11:17)
[2018-09-22] MEDS ORDERED: Ketorolac 15 MG/ML VIAL IVP ONE (16:01)
[2018-09-22 22:15] LABS: Bilirubin,Urine Negative (Negative); Blood,Urine Negative (Negative); Clarity,Urine Turbid (Clear); Color,Urine Yellow (Yellow); Glucose,Urine (UA) Normal (Normal); Ketones,Urine Negative (Negative); Leukocyte Esterase,Urine Negative (Negative); Nitrite,Urine Negative (Negative); PH,Urine 7.5 pH Units (5.0-8.0); Protein,Urine Negative (Neg-Trace); Specific Gravity,Urine 1.021 (1.010-1.025); Urobilinogen,Urine Normal (Normal)
[2018-09-22 22:18] LABS: Bacteria,Urine Few per hpf (None-Few); Hyaline Casts,Urine None Seen per lpf (None-Few); Squamous Epithelial Cell,Urine Many per lpf (None-Few); WBC,Urine 0-3 per hpf (0-3)
[2018-09-23] MEDS: *HR* Heparin 5,000 UNIT/ML VIAL SQ SCH ×2 (07:08→13:39)
[2018-09-23] MEDS: Metoprolol XL (24 HR) Succ 25 MG TAB.ER.24H PO SCH (08:48)
[2018-09-23] MEDS: tiZANidine 4 MG TABLET PO SCH (08:48)
[2018-09-23] MEDS ORDERED: Topiramate 100 MG TABLET PO SCH (09:00)
[2018-09-23 09:15] LABS: Hematocrit 43.8 % (35.3-44.9); Hemoglobin 13.9 g/dL (11.5-15.4); Mean Corpuscular HGB Conc 31.7 g/dL (31.6-35.5); Mean Corpuscular Volume 88.1 fL (83.0-100.0); Mean Platelet Volume 10.2 fL (9.4-12.4); Platelet Count 310 K/mcL (140-400); Red Blood Count 4.97 M/mcL (3.82-4.97); Red Cell Distribution Width 14.1 % (11.5-14.5); White Blood Count 6.9 K/mcL (4.3-11.1)
[2018-09-23 09:32] LABS: BUN/Creatinine Ratio 16 (6-26); Blood Urea Nitrogen 14 mg/dL (6-20); Calcium 9.2 mg/dL (8.6-10.3); Carbon Dioxide 19 mEq/L (23-29); Chloride 106 mEq/L (98-107); Glucose 103 mg/dL (70-105); Osmolality,Calculated 281 (280-300); Potassium 3.9 mEq/L (3.5-5.1); Sodium 135 mEq/L (136-145); eGFR For African Americans > 60 (> 60); eGFR For Non-African Americans > 60 (> 60)
[2018-09-23 11:24] VITALS: BP 84/55
[2018-09-23] MEDS ORDERED: Acetaminophen/Butalbital/CaffeineTABLET PO PRN (14:11)
[2018-09-23 14:59] LABS: Albumin 4.3 g/dL (3.5-5.7); Albumin/Globulin Ratio 1.3 (1.1-2.2); Bilirubin,Direct 0.1 mg/dL (0.0-0.2); Bilirubin,Indirect 0.4 mg/dL (0.0-1.2); Bilirubin,Total 0.5 mg/dL (0.3-1.0); Globulin 3.3 g/dL (2.4-3.5); Total Protein 7.6 g/dL (6.4-8.9)
[2018-09-23 15:52] LABS: Estimated Average Glucose 120 mg/dl
== END 2018-09-23 15:37 | disposition home or self-care (01) ==
LOC: 3BNU
PROVIDERS: ADMIT Internal Medicine Nephrology; ATTEND Internal Medicine Nephrology

== ENCOUNTER 2020-07-07 23:29 | Observation (INO) ==
[2020-07-07] MEDS ORDERED: Acetaminophen 325 MG TABLET PO ONE (23:49)
[2020-07-08] MEDS ORDERED: Ketorolac 30 MG/ML VIAL IVP ONE (02:00)
[2020-07-08] MEDS ORDERED: *HR* LORazepam 2 MG/ML VIAL IVP ONE (02:00)
[2020-07-08] MEDS ORDERED: Ondansetron 4 MG/2 ML VIAL IVP PRN ×2 (02:02→09:04)
[2020-07-08] MEDS ORDERED: Perflutren Lipid Microsphere 1.3 ML in 0.9 % Sodium Chloride 8.7 ML IVP PRN (02:02)
[2020-07-08] MEDS ORDERED: Melatonin 3 MG TABLET PO PRN (02:02)
[2020-07-08] MEDS ORDERED: Naloxone 0.4 MG/ML INJ IVP PRN (02:02)
[2020-07-08 04:06] LABS: Alanine Aminotransferase 33 Units/L (7-52); Albumin 4.4 g/dL (3.5-5.7); Albumin/Globulin Ratio 1.2 (1.1-2.2); Alkaline Phosphatase 85 Units/L (34-104); Aspartate Amino Transferase 29 Units/L (13-39); BUN/Creatinine Ratio 7 (6-26); Bilirubin,Total 0.5 mg/dL (0.3-1.0); Blood Urea Nitrogen 6 mg/dL (6-20); Calcium 9.3 mg/dL (8.6-10.3); Carbon Dioxide 17 mEq/L (23-29); Chloride 103 mEq/L (98-107); Cholesterol 246 mg/dL (< 200); Globulin 3.7 g/dL (2.4-3.5); Glucose 111 mg/dL (70-105); HDL Cholesterol 35 mg/dL (40-59); LDL Cholesterol,Calculated 165 mg/dL (< 100); Osmolality,Calculated 276 (280-300); Potassium 3.6 mEq/L (3.5-5.1); Sodium 134 mEq/L (136-145); Total Protein 8.1 g/dL (6.4-8.9); Triglycerides 231 mg/dL (< 150); eGFR For African Americans > 60 (> 60); eGFR For Non-African Americans > 60 (> 60)
[2020-07-08] MEDS ORDERED: Acetaminophen 325 MG TABLET PO ONE (05:36)
[2020-07-08 06:00] LABS: Basophils % 0.4 %; Eosinophils % 0.3 %; Hemoglobin 13.5 g/dL (11.5-15.4); Immature Granulocytes % 0.1 % (0-4); Lymphocytes # 2.5 K/mcL (0.6-4.6); Lymphocytes % 26.8 %; Mean Corpuscular HGB Conc 32.9 g/dL (31.6-35.5); Mean Corpuscular Hemoglobin 28.6 pg (28.0-33.3); Mean Corpuscular Volume 86.9 fL (83.0-100.0); Mean Platelet Volume 10.9 fL (9.4-12.4); Monocytes # 0.6 K/mcL (0.0-1.3); Monocytes % 6.6 %; Neutrophils # 6.2 K/mcL (1.6-8.9); Platelet Count 284 K/mcL (140-400); Red Blood Count 4.72 M/mcL (3.82-4.97); Red Cell Distribution Width 12.7 % (11.5-14.5); Segmented Neutrophils % 65.8 %; White Blood Count 9.5 K/mcL (4.3-11.1)
[2020-07-08 06:31] LABS: Estimated Average Glucose 117 mg/dl; Hemoglobin A1C 5.7 %
[2020-07-08 08:57] LABS: Troponin I < 0.03 ng/mL (< 0.04)
[2020-07-08] MEDS ORDERED: amLODIPine 5 MG TABLET PO SCH (09:00)
[2020-07-08] MEDS ORDERED: tiZANidine 4 MG TABLET PO STA (09:59)
[2020-07-08] MEDS ORDERED: *HR* Promethazine 25 MG/ML VIAL IM PRN ×2 (09:59)
[2020-07-08 10:48] LABS: Magnesium 1.6 mg/dL (1.6-2.6)
[2020-07-08 10:54] LABS: Thyroid Stimulating Hormone 1.646 mcIU/mL (0.340-5.600)
[2020-07-08] MEDS ORDERED: Ketorolac 15 MG/ML VIAL IVP PRN (15:46)
[2020-07-08 15:56] VITALS: BP 127/80
[2020-07-08] MEDS ORDERED: Divalproex (12 HR) 500 MG TABLET PO SCH (21:00)
[2020-07-08] MEDS ORDERED: OXcarbazepine 150 MG TABLET PO SCH (21:00)
[2020-07-09] MEDS ORDERED: *HR* Enoxaparin 40 MG/0.4 ML SYRINGE SQ SCH (06:00)
== END 2020-07-08 18:45 | disposition left against medical advice (07) ==
LOC: 2NENU 23:29 → EMEROOARM 23:29 → 2NENU 07-08 02:35
PROVIDERS: ADMIT Family Medicine; ATTEND Family Medicine